=== PATIENT | female | born 1955 | race Caucasian/White ===

== ENCOUNTER → 2023-12-28 14:25 | Outpatient (REF) | payer OTHER, SELFPAY | LOC: HWWDC 14:25 | PROVIDERS: ATTENDING PHYSICIAN Internal Medicine | DX: Z12.31 Encounter for screening mammogram for malignant neoplasm of breast (principal) | CPT/HCPCS: 77063; 77067 ==

== ENCOUNTER → 2024-03-24 11:31 | Outpatient (REF) | payer OTHER, SELFPAY ==
[2024-03-24 12:52] LABS: % Eosinophils 2.4 % (0-6); % Immature Granulocytes 0.3 % (0-0.5); % Lymphocytes 37.9 % (20.5-51.1); % Monocytes 7.6 % (1.7-9.3); % Neutrophils 50.8 % (42.2-75.2); Absolute Basophils 0.1 10^3/uL (0-0.2); Absolute Eosinophils 0.2 10^3/uL (0-0.7); Absolute Lymphocytes 2.7 10^3/uL (1.2-3.4); Absolute Monocytes 0.5 10^3/uL (0.1-0.6); Absolute Neutrophils 3.6 10^3/uL (1.4-6.5); Hemoglobin 12.5 g/dL (12.0-16.0); Mean Corp Hgb Conc. 32.9 g/dL (33.0-37.0); Mean Corpuscular Hgb 27.7 pg (27.0-31.0); Mean Corpuscular Volume 84.3 fL (81.0-99.0); Mean Platelet Volume 9.8 fL (7.4-10.4); Nucleated Red Blood Cells % 0 %; Platelet Count 286 10^3/uL (130-400); Red Blood Cell Count 4.51 10^6/uL (4.20-5.40); Red Cell Dist. Width 12.6 % (11.5-14.5); White Blood Cell Count 7.1 10^3/uL (4.8-10.8)
[2024-03-24 13:03] LABS: ALT (SGPT) 16 U/L (0-35); AST (SGOT) 21 U/L (14-36); Albumin 4.2 g/dl (3.5-5.0); Alkaline Phosphatase 63 U/L (38-126); Blood Urea Nitrogen 14 mg/dl (7-17); Calcium 9.8 mg/dl (8.4-10.2); Carbon Dioxide 27 mmol/L (22-30); Chloride 105 mmol/L (98-107); Glucose 95 mg/dl (70-99); HDL Cholesterol 71 mg/dl; LDL Cholesterol, Calculated 111 mg/dl; Potassium 4.6 mmol/L (3.5-5.1); Sodium 139 mmol/L (135-145); Total Bilirubin 0.6 mg/dl (0.2-1.3); Total Cholesterol 206 mg/dl (50-199); Total Protein 6.6 g/dl (6.3-8.2); Triglyceride 122 mg/dl (10-149); Very Low Density Lipoprotein 24 mg/dl (0-30); eGFR > 60.00
[2024-03-24 13:20] LABS: Vitamin D, 25-OH*** 22.6 ng/mL (30-80)
[2024-03-24 13:33] LABS: TSH 0.83 uIU/ml (0.47-4.68)
== END ==
LOC: REG 11:31
PROVIDERS: ATTENDING PHYSICIAN Physician Assistant Medical; FAMILY PHYSICIAN Internal Medicine
DX: Z00.01 Encounter for general adult medical examination with abnormal findings (principal); E78.5 Hyperlipidemia, unspecified; E04.1 Nontoxic single thyroid nodule; E55.9 Vitamin D deficiency, unspecified
CPT/HCPCS: 36415; 80053; 80061; 82306; 84443; 85025

== ENCOUNTER → 2024-07-14 09:00 | Outpatient (REF) | payer OTHER, SELFPAY | LOC: HWRAD 09:00 | PROVIDERS: ATTENDING PHYSICIAN Physician Assistant Medical | DX: M85.80 Other specified disorders of bone density and structure, unspecified site (principal) | CPT/HCPCS: 77080 ==

== ENCOUNTER → 2024-07-17 11:32 | Outpatient (REF) | payer OTHER, SELFPAY | LOC: HWRAD 11:32 | PROVIDERS: ATTENDING PHYSICIAN Physician Assistant Medical | DX: E04.1 Nontoxic single thyroid nodule (principal) | CPT/HCPCS: 76536 ==

== ENCOUNTER → 2024-10-04 07:32 | Outpatient (REF) | payer OTHER, SELFPAY ==
[2024-10-04 07:50] VITALS: BP 136/58; BP_SYST 66
== END ==
LOC: RADI 07:32
PROVIDERS: ATTENDING PHYSICIAN Internal Medicine Endocrinology, Diabetes & Metabolism
DX: E04.1 Nontoxic single thyroid nodule (principal)
CPT/HCPCS: 88173; 10005

== ENCOUNTER 2024-11-09 06:21 | Day surgery (SDC) | payer OTHER, SELFPAY | END 2024-11-09 11:42 | disposition home or self-care (01) | LOC: GI 06:21 | PROVIDERS: ATTENDING PHYSICIAN Internal Medicine Gastroenterology | DX: Z12.11 Encounter for screening for malignant neoplasm of colon (principal); K64.0 First degree hemorrhoids; D12.0 Benign neoplasm of cecum; D12.3 Benign neoplasm of transverse colon; K31.89 Other diseases of stomach and duodenum; K29.70 Gastritis, unspecified, without bleeding | CPT/HCPCS: 45385; 45380; 88305 ==

== ENCOUNTER → 2025-01-29 15:48 | Outpatient (REF) | payer OTHER, SELFPAY | LOC: HWWDC 15:48 | PROVIDERS: ATTENDING PHYSICIAN Physician Assistant Medical | DX: Z12.31 Encounter for screening mammogram for malignant neoplasm of breast (principal) | CPT/HCPCS: 77063; 77067 ==

== ENCOUNTER → 2025-02-16 10:05 | Outpatient (REF) | payer OTHER, SELFPAY | LOC: WDC 10:05 | PROVIDERS: ATTENDING PHYSICIAN Physician Assistant Medical | DX: R92.8 Other abnormal and inconclusive findings on diagnostic imaging of breast (principal) | CPT/HCPCS: 76642 ==

== ENCOUNTER → 2025-09-25 15:08 | Outpatient (REF) | payer OTHER, SELFPAY | LOC: HWWDC 15:08 | PROVIDERS: ATTENDING PHYSICIAN Physician Assistant Medical | DX: Z12.31 Encounter for screening mammogram for malignant neoplasm of breast (principal) | CPT/HCPCS: 77061; 77065 ==